=== PATIENT | female | born 1990 | race Two or more races ===

== ENCOUNTER 2016-08-02 12:51 | Emergency (ER) | payer MEDICAID ==
[~2016-08-02] VITALS: Ht 160 cm; Wt 90.7 kg
[2016-08-02 13:15] VITALS: BP 147/89
[2016-08-02] MEDS ORDERED: cefTRIAXone SOD 1,000 MG VL IM ONE (13:45)
[2016-08-02] MEDS ORDERED: KETOROLAC TROMETH 60MG/2ML VIAL IM ONE (13:45)
== END 2016-08-02 14:34 | disposition home or self-care (01) ==
LOC: ER 12:51
DX: L03.211 Cellulitis of face (principal); K02.9 Dental caries, unspecified
CPT/HCPCS: 96372; 99284; J0696; J1885

== ENCOUNTER 2018-05-08 18:25 | Emergency (ER) | payer MEDICAID ==
[~2018-05-08] VITALS: Ht 157.5 cm; Wt 98.0 kg
[2018-05-08 18:38] VITALS: BP 146/83
[2018-05-08] MEDS ORDERED: KETOROLAC TROMETH 60MG/2ML VIAL IM ONE (22:00)
[2018-05-08] MEDS ORDERED: methylPREDNISolone SOD SUCC 125 MG/2 ML VL IM ONE (22:00)
[2018-05-08] MEDS ORDERED: ONDANSETRON ODT 4 MG TAB PO ONE (22:45)
== END 2018-05-09 00:17 | disposition home or self-care (01) ==
LOC: ER 18:25
DX: S13.4XXA Sprain of ligaments of cervical spine, initial encounter (principal); R51 Headache; N39.0 Urinary tract infection, site not specified; X58.XXXA Exposure to other specified factors, initial encounter; Y93.89 Activity, other specified; Y92.89 Other specified places as the place of occurrence of the external cause; Y99.8 Other external cause status
CPT/HCPCS: 72040; 81002; 81025; 96372; 99283; J1885; J2930; Q0162